=== PATIENT | female | born 1950 | race Caucasian/White ===

== ENCOUNTER → 2016-12-21 | Outpatient (CLI) | payer MEDICARE, OTHER ==
[2016-12-21 19:11] LABS: Basophils % (A) 1 %; CH 28.9; CHCM 32.3; Eosinophils # (A) 0.2 k/uL (0-0.7); Eosinophils % (A) 2 %; HCT 44.1 % (34.0-46.0); HDW 2.42; HGB 14.4 gm/dL (11.4-16.0); Luc # (Auto) 0.11; Luc % (Auto) 2; Lymphocytes # (A) 1.4 k/uL (1.0-4.8); Lymphocytes % (A) 22 %; MCH 29.4 pg (25.0-35.0); MCHC 32.8 g/dL (31.0-37.0); MCV 89.8 fL (80.0-100.0); Mean Platelet Volume 9.1; Monocytes # (A) 0.4 k/uL (0-1.0); Monocytes % (A) 6 %; Neutrophils # (A) 4.2 k/uL (1.3-7.7); Neutrophils % (A) 68 %; RBC 4.91 m/uL (3.80-5.40); RDW 12.8 % (11.5-15.5); WBC 6.2 k/uL (3.8-10.6); WBC (Perox) 6.21
[2016-12-21 19:35] LABS: ALT 39 U/L (9-52); AST 26 U/L (14-36); Alkaline Phosphatase 101 U/L (38-126); Anion Gap 9 mmol/L; Blood Urea Nitrogen 18 mg/dL (7-17); Calcium 9.7 mg/dL (8.4-10.2); Carbon Dioxide 29 mmol/L (22-30); Chloride 105 mmol/L (98-107); Cholesterol 178 mg/dL (<200); Glucose 91 mg/dL (74-99); HDL Cholesterol 72 mg/dL (40-60); Non-African American GFR(MDRD) >60 (>60 ml/min/1.73 sqM); Potassium 4.3 mmol/L (3.5-5.1); Sodium 143 mmol/L (137-145); Total Bilirubin 0.6 mg/dL (0.2-1.3); Total Protein 7.2 g/dL (6.3-8.2)
== END | disposition home or self-care (01) ==
LOC: MMGSC 11:05
PROVIDERS: ATTEND Family Medicine
DX: E78.5 Hyperlipidemia, unspecified (principal); I10 Essential (primary) hypertension; E04.1 Nontoxic single thyroid nodule; R94.6 Abnormal results of thyroid function studies
CPT/HCPCS: 36415; 80053; 80061; 84439; 84443; 84481; 85025; 90732; 99214

== ENCOUNTER → 2017-03-03 | Outpatient (CLI) | payer MEDICARE, OTHER ==
[2017-03-06 12:00] LABS: CVD Source Urogenital
== END | disposition home or self-care (01) ==
LOC: MMGSC 12:28
PROVIDERS: ATTEND Family Medicine
DX: N39.0 Urinary tract infection, site not specified (principal); R10.9 Unspecified abdominal pain; R30.0 Dysuria; N76.6 Ulceration of vulva
CPT/HCPCS: 87086; 87252; 87498; 87529; 87798

== ENCOUNTER → 2017-04-26 | Outpatient (CLI) | payer MEDICARE, OTHER | END | disposition home or self-care (01) | LOC: MMGSC 14:24 | PROVIDERS: ATTEND Family Medicine | DX: N39.0 Urinary tract infection, site not specified (principal) | CPT/HCPCS: 87086; 99213 ==

== ENCOUNTER → 2017-09-04 | Outpatient (CLI) | payer MEDICARE, OTHER ==
[2017-09-04 10:57] LABS: Basophils # (A) 0.1 k/uL (0-0.2); Basophils % (A) 1 %; Eosinophils # (A) 0.2 k/uL (0-0.7); Eosinophils % (A) 3 %; HCT 43.3 % (34.0-46.0); HGB 14.1 gm/dL (11.4-16.0); Lymphocytes # (A) 1.6 k/uL (1.0-4.8); Lymphocytes % (A) 28 %; MCH 28.6 pg (25.0-35.0); MCHC 32.5 g/dL (31.0-37.0); MCV 87.9 fL (80.0-100.0); Mean Platelet Volume 7.4; Monocytes # (A) 0.3 k/uL (0-1.0); Monocytes % (A) 6 %; Neutrophils # (A) 3.5 k/uL (1.3-7.7); Neutrophils % (A) 61 %; Platelet Count 267 k/uL (150-450); RBC 4.92 m/uL (3.80-5.40); WBC 5.7 k/uL (3.8-10.6)
[2017-09-04 12:06] LABS: Albumin 4.2 g/dL (3.5-5.0); Calcium 9.6 mg/dL (8.4-10.2); Potassium 4.3 mmol/L (3.5-5.1); Total Bilirubin 0.4 mg/dL (0.2-1.3); Total Protein 7.1 g/dL (6.3-8.2)
[2017-09-04 12:17] LABS: T4, Free (Free Thyroxine) 0.99 ng/dL (0.78-2.19)
== END ==
LOC: LABWHC1 10:35
PROVIDERS: ATTEND Family Medicine
DX: E78.5 Hyperlipidemia, unspecified (principal); E03.9 Hypothyroidism, unspecified; I10 Essential (primary) hypertension
CPT/HCPCS: 36415; 80053; 80061; 84439; 84443; 84481; 85025

== ENCOUNTER → 2020-05-05 | Outpatient (CLI) | payer MEDICARE, OTHER | END | disposition home or self-care (01) | LOC: LABWHC1 15:16 | PROVIDERS: ATTEND Family Medicine | DX: R51.9 Headache, unspecified (principal); R19.7 Diarrhea, unspecified; R50.9 Fever, unspecified; R53.83 Other fatigue | CPT/HCPCS: 87502; U0003; C9803; U0005 ==

== ENCOUNTER → 2021-12-21 | Outpatient (CLI) | payer MEDICARE, OTHER ==
--- NOTE | 2021-12-21 11:04 | FL ---
EXAMINATION TYPE: FL barium swallow DATE OF EXAM: 12/21/2021 COMPARISON: 03/17/2016 HISTORY: GERD food getting stuck TECHNIQUE: A single thin contrast sonogram study is performed. FINDINGS: Esophagus dilates to normal caliber and has normal contour to the gastroesophageal junction. Schatzki 's ring in the gastroesophageal junction is above the diaphragm. Small hiatal hernia is present. Few tertiary contractions are identified during the examination within the distal esophagus. Overhead rad iographs were obtained. Fluoroscopy time: 42 seconds. Images: 18 IMPRESSIONS: 1. There appears to be interval herniation of the stomach into the distal thorax and a small hiatal h ernia present. 2. Mild presbyesophagus.
== END | disposition home or self-care (01) ==
LOC: RADFLMAIN 09:24
PROVIDERS: ATTEND Surgery
DX: K44.9 Diaphragmatic hernia without obstruction or gangrene (principal); K22.89 Other specified disease of esophagus; K21.9 Gastro-esophageal reflux disease without esophagitis
CPT/HCPCS: 74220

== ENCOUNTER 2021-12-23 09:41 | Day surgery (SDC) | payer MEDICARE, OTHER ==
[~2021-12-23 09:41] MED LIST: LACTATED RINGERS 1,000 ML IV SCH; LIDOCAINE 1% (10MG/ML) FOR IV START INTRADERMA PRN
[2021-12-23 10:07] VITALS: TEMP 98.4
[2021-12-23] MEDS ORDERED: LIDOCAINE 2% INJ 20 MG/ML (2 ML VIAL) ONE (10:45)
[2021-12-23] MEDS ORDERED: PROPOFOL 10 MG/ML 20 ML VIAL IV ONE (10:45)
--- NOTE | 2021-12-23 10:54 | P.GSHP ---
History of Present Illness H&P Date: 12/23/21 Chief Complaint: GERD, dysphagia Is a 71-year-old female who presents today for EGD. She's had some issues with GERD and dysphagia. Her recent esophagram shows evidence of recurrent hiatal hernia. Past Medical History Past Medical History: GERD/Reflux, Hyperlipidemia, Hypertension Additional Past Medical History / Comment(s): RASH ON FOREHEAD BEING TREATED BY CERTIFIED CONTROL SYSTEMS TECHNICIAN. History of Any Multi-Drug Resistant Organisms: None Reported Past Surgical History: Cholecystectomy, Hernia Repair, Hysterectomy, Tonsillectomy Additional Past Surgical History / Comment(s): EGD hiatal hernia repair Past Anesthesia/Blood Transfusion Reactions: Motion Sickness, Postoperative Nausea & Vomiting (PONV) Smoking Status: Never smoker - Past Family History Mother Family Medical History: No Reported History Additional Family Medical History / Comment(s): leukemia at end passed at 89 Father Additional Family Medical History / Comment(s): BLOOD CLOT Medications and Allergies Home Medications Medication Instructions Recorded Confirmed Type ALPRAZolam [Xanax] 0.5 mg PO DAILY PRN 02/26/16 12/23/21 History Multivitamins, Thera [Multivitamin 1 tab PO DAILY 02/26/16 12/23/21 History (formulary)] Sertraline HCl [Zoloft] 75 mg PO DAILY 02/26/16 12/23/21 History amLODIPine BESYLATE/BENAZEPRIL 1 tab PO QAM 02/26/16 12/23/21 History [Lotrel 5-10 MG] Rosuvastatin Calcium [Crestor] 1 tab PO DIRECTED 12/22/21 12/23/21 History Allergies Allergy/AdvReac Type Severity Reaction Status Date / Time codeine Allergy Mild Nausea & Verified 12/23/21 09:59 Vomiting Surgical - Exam Vital Signs Temp Pulse Resp BP Pulse Ox 98.4 F 78 16 147/78 98 12/23/21 09:59 12/23/21 09:59 12/23/21 09:59 12/23/21 09:59 12/23/21 09:59 - General well developed, well nourished, no distress - Eyes PERRL - ENT normal pinna - Neck no masses - Respiratory normal expansion - Cardiovascular Rhythm: regular - Abdomen Abdomen: soft, non tender Assessment and Plan Assessment: GERD, dysphagia. We'll perform EGD.
--- NOTE | 2021-12-23 10:55 | P.OP ---
Date of Procedure: 12/23/21 Preoperative Diagnosis: GERD, dysphagia Postoperative Diagnosis: Recurrent hiatal hernia Esophagitis Procedure(s) Performed: EGD Anesthesia: MAC Surgeon: Chip Correia Pathology: other (Antrum, esophagus) Condition: stable Disposition: PACU Description of Procedure: Patient's placed on the endoscopy table in the lateral position. She received IV sedation. The gastro-/oropharynx passed in the esophagus into the stomach. Scope was then placed through the pylorus. First and second portion of the d uodenum appeared normal. Scope was then brought back the antrum this. Mildly inflamed. A biopsies performed. The scope was unretroflexed and remainder the stomach appeared normal. The patient had a small recurrent hiatal hernia. The GE junction was at 38 cm. The distal esophagus appeared inflamed. There is evidence of a Schatzki ring. A biopsies performed. The proximal esophagus appeared normal. Scope withdrawn for patient.
[2021-12-23 11:14] VITALS: BP 145/81; PULSE 70; RESP 16
== END 2021-12-23 11:27 | disposition home or self-care (01) ==
LOC: ORWHC2ENDO 09:41
PROVIDERS: ATTEND Surgery
DX: K21.00 Gastro-esophageal reflux disease with esophagitis, without bleeding (principal); K44.9 Diaphragmatic hernia without obstruction or gangrene; K22.2 Esophageal obstruction; I10 Essential (primary) hypertension; E78.5 Hyperlipidemia, unspecified; F41.9 Anxiety disorder, unspecified; F32.A Depression, unspecified; Z88.5 Allergy status to narcotic agent; Z79.899 Other long term (current) drug therapy; Z90.49 Acquired absence of other specified parts of digestive tract; Z90.710 Acquired absence of both cervix and uterus; Z80.6 Family history of leukemia; Z82.49 Family history of ischemic heart disease and other diseases of the circulatory system
CPT/HCPCS: 88305; 43239; J2704; J2001

== ENCOUNTER → 2022-01-03 | Outpatient (CLI) | payer MEDICARE, OTHER ==
[2022-01-03 14:27] LABS: Basophils # (A) 0.07 X 10*3/uL (0.00-0.10); Eosinophils # (A) 0.16 X 10*3/uL (0.04-0.35); Eosinophils % (A) 2.3 %; HCT 43.1 % (37.2-46.3); HGB 14.1 g/dL (12.0-15.0); Immature Grans, Automated 0.3 %; Lymphocytes # (A) 1.69 X 10*3/uL (0.90-5.00); Lymphocytes % (A) 24.7 %; MCH 30.2 pg (27.0-32.0); MCHC 32.7 g/dL (32.0-37.0); MCV 92.3 fL (80.0-97.0); Mean Platelet Volume 11.3 fL (9.5-12.2); Monocytes # (A) 0.54 X 10*3/uL (0.20-1.00); Monocytes % (A) 7.9 %; NRBC Per 100 WBC 0 /100 WBCS (0.0-0.0); Neutrophils # (A) 4.36 X 10*3/uL (1.80-7.70); Neutrophils % (A) 63.8 %; Platelet Count 344 X 10*3/uL (140-440); RBC 4.67 X 10*6/uL (4.10-5.20); RDW 12.8 % (11.5-14.5); WBC 6.84 X 10*3/uL (4.50-10.00)
== END | disposition home or self-care (01) ==
LOC: LABPAT 09:45
PROVIDERS: ATTEND Surgery
DX: Z01.812 Encounter for preprocedural laboratory examination (principal); K21.00 Gastro-esophageal reflux disease with esophagitis, without bleeding
CPT/HCPCS: 36415; 85025; 93005

== ENCOUNTER 2022-02-02 06:48 | Day surgery (SDC) | payer MEDICARE, OTHER ==
[~2022-02-02 06:48] MED LIST changes: +ACETAMINOPHEN TAB 500 MG TAB PO PRN; +HEPARIN SODIUM,PORCINE/PF 5,000 UNIT/0.5 ML SYRINGE SQ PRN; -LACTATED RINGERS 1,000 ML IV SCH; -LIDOCAINE 1% (10MG/ML) FOR IV START INTRADERMA PRN
[2022-02-02] MEDS ORDERED: ONDANSETRON 4 MG/2 ML VIAL IVP ONE ×2 (06:59→10:02)
[2022-02-02] MEDS ORDERED: fentaNYL (PF) 50 MCG/ML 2 ML AMP IV PRN (06:59)
[2022-02-02] MEDS ORDERED: DEXAMETHASONE SOD PHOSPHATE 4 MG/ML 1 ML VIAL IV ONE (06:59)
[2022-02-02] MEDS ORDERED: LACTATED RINGERS 1,000 ML IV ONE ×4 (07:45→12:15)
[2022-02-02] MEDS ORDERED: ROCURONIUM 10 MG/ML (5 ML VIAL) IV ONE (08:20)
[2022-02-02] MEDS ORDERED: KETAMINE 10 MG/ML 20 ML VIAL ONE (08:20)
[2022-02-02] MEDS ORDERED: MIDAZOLAM 2 MG/2 ML VIAL ONE (08:20)
[2022-02-02] MEDS ORDERED: PHENYLEPHRINE-0.9% NACL SYG 1,000 MCG/10 ML SYRINGE ONE (08:20)
[2022-02-02] MEDS ORDERED: NEOSTIGMINE 1 MG/ML 10 ML VIAL ONE (08:20)
[2022-02-02] MEDS ORDERED: GLYCOPYRROLATE 0.2 MG/ML 2 ML VIAL ONE (08:20)
[2022-02-02] MEDS ORDERED: LIDOCAINE 2% INJ 20 MG/ML (2 ML VIAL) ONE (08:20)
[2022-02-02] MEDS ORDERED: SUCCINYLCHOLINE CHLORIDE 200 MG/10 ML VIAL IV ONE (08:20)
[2022-02-02] MEDS ORDERED: PROPOFOL 10 MG/ML 20 ML VIAL IV ONE (08:20)
[2022-02-02] MEDS ORDERED: KETOROLAC 30 MG/ML 1 ML VIAL ONE (08:20)
[2022-02-02] MEDS ORDERED: LIDOCAINE 4% LTA KIT (4 ML) TOPICAL ONE (08:20)
[2022-02-02] MEDS ORDERED: fentaNYL (PF) 50 MCG/ML 2 ML AMP ONE (08:20)
[2022-02-02] MEDS ORDERED: LIDOCAINE 1%-EPI 1:100,000 20 ML VIAL SQ ONE ×2 (08:32→08:54)
--- NOTE | 2022-02-02 09:49 | P.GSHP ---
History of Present Illness H&P Date: 02/02/22 Chief Complaint: GERD, dysphagia Is a 71-year-old female who's developed a recurrent hiatal hernia. Patient's echo with GERD and dysphagia. Patient presents today for laparoscopic repair of recurrent hiatal hernia Past Medical History Past Medical History: Cancer, GERD/Reflux, Hyperlipidemia, Hypertension, Osteoarthritis (OA) Additional Past Medical History / Comment(s): MIGRAINE HEADACHES, HIATAL HERNIA , SKIN CANER History of Any Multi-Drug Resistant Organisms: None Reported Past Surgical History: Cholecystectomy, Hysterectomy, Tonsillectomy Additional Past Surgical History / Comment(s): EGD, COLONOSCOPY Past Anesthesia/Blood Transfusion Reactions: Previous Problems w/ Anesthesia, Motion Sickness, Postoperative Nausea & Vomiting (PONV) Smoking Status: Never smoker - Past Family History Mother Family Medical History: Cancer Additional Family Medical History / Comment(s): leukemia at end passed at 89 Father Additional Family Medical History / Comment(s): BLOOD CLOT Brother(s) Family Medical History: Cancer Medications and Allergies Home Medications Medication Instructions Recorded Confirmed Type ALPRAZolam [Xanax] 0.5 mg PO DAILY PRN 02/26/16 01/27/22 History Multivitamins, Thera [Multivitamin 1 tab PO DAILY 02/26/16 01/27/22 History (formulary)] Sertraline HCl [Zoloft] 75 mg PO DAILY 02/26/16 01/27/22 History amLODIPine BESYLATE/BENAZEPRIL 1 tab PO QAM 02/26/16 01/27/22 History [Lotrel 5-10 MG] Rosuvastatin Calcium [Crestor] 1 tab PO MOWEFR 12/22/21 01/27/22 History Allergies Allergy/AdvReac Type Severity Reaction Status Date / Time codeine Allergy Mild Nausea & Verified 01/27/22 10:39 Vomiting Surgical - Exam Vital Signs Temp Pulse Resp BP Pulse Ox 98.7 F 85 18 127/74 100 02/02/22 07:36 02/02/22 07:36 02/02/22 07:36 02/02/22 07:36 02/02/22 07:36 - General well developed, well nourished, no distress - Eyes PERRL - ENT normal pinna - Neck no masses - Respiratory normal expansion - Cardiovascular Rhythm: regular - Abdomen Abdomen: soft, non tender Assessment and Plan Assessment: GERD, dysphagia. Recurrent hiatal hernia. We'll perform laparoscopic repair of hiatal hernia.
[2022-02-02 09:50] VITALS: RESP 16
[2022-02-02] MEDS ORDERED: HYDROmorphone 1 MG/ML 1 ML SYRINGE IVP PRN (09:52)
--- NOTE | 2022-02-02 09:52 | P.OP ---
Date of Procedure: 02/02/22 Preoperative Diagnosis: GERD, dysphagia Postoperative Diagnosis: Recurrent hiatal hernia GERD Dysphagia Procedure(s) Performed: Laparoscopic repair of paraesophageal hiatal hernia with mesh Anesthesia: CHARLENE Surgeon: Chip Correia Estimated Blood Loss (ml): 10 Pathology: none sent Condition: stable Disposition: PACU Description of Procedure: The patient was placed on the operating table in the supine position. The patient received general anesthesia. And was placed in dorsal lithotomy position. The patient was prepped and draped in the usual sterile fashion. The skin incision sites were anesthetized with 1% local Xylocaine. The skin was incised in the left periumbilical area and then using a blade less 5 mm trocar under direct visualization panel cavity was entered. After adequate insufflation the laparoscope was then placed into the peritoneal cavity. Next a 5 mm trochars placed in the right epigastric position. Another 5 millimeter trocar the right lateral position. Another 5 millimeter trocar in the left lateral position a 5 mm trocar is placed in the left epigastric position. And then the initial 5 mm trocar was exchanged for a 10 mm trocar. The left lateral lobe liver was retracted. The hernia was seen. The patient had a central herni a with a portion of the stomach within the chest. The crural defect was then dissected using the Harmonic scissors device. A 360 crural dissection was performed the esophagus stomach was reduced back into the peritoneal Cavity. The crural defect was then closed using 2-0 Ethibond suture. Care was taken to ensure the crural repair was not too tight. After the crura was repaired. A piece of [place] [employer] a mesh was placed over top the repair and secured with the sole right running device. A good portion of the esophagus and stomach were completely within the perineal cavity. There is no bleeding seen. The trochars withdrawn. The skin was closed interrupted 3-0 Monocryl suture. Dermabond dressing was applied. Patient top she will sent to recovery room in stable condition.
[2022-02-02] MEDS ORDERED: diphenhydrAMINE 50 MG/ML 1 ML VIAL IVP ONE (10:23)
[2022-02-02] MEDS: LACTATED RINGERS 1,000 ML IV SCH (13:41)
[2022-02-02] MEDS: D5-0.45% NACL WITH KCL 20MEQ/L 1,000 ML IV SCH (16:07)
--- NOTE | 2022-02-02 17:05 | P.CONS ---
History of Present Illness - Reason for Consult Consult date: 02/02/22 Medical Management Requesting physician: Chip Correia - History of Present Illness History of Presenting Illness: Patient is a Very pleasant 71-year-old female with a past medical history of hypertension, hyperlipidemia, GERD, and hiatal hernia. Patient is currently admitted under general surgery team status post laparoscopic repair of paraesophageal hiatal hernia. Surgical procedure was completed by Dr. Correia on 02/02/22. We have been consulted for medical management throughout patient's hospitalization. patient was seen and fully evaluated at bedside. Patient cu rrently doing well denies having any postoperative nausea or vomiting she is tolerating clear liquid diet and denies having any difficulty swallowing. Laparoscopic postoperative incisions well approximated and intact with no signs of drainage or surrounding erythema. patient denies having any dizziness, lightheadedness, chest pain, palpitations, shortness of breath, cough or congestion, nausea, vomiting, or any other complaints at this time. Review of systems: Pertinent positives and negatives as discussed in HPI, a complete review of systems was performed and all other systems are negative. Physical exam: Vital signs reviewed and stable. General: Nontoxic, no distress and appears stated age. Derm: Skin warm and dry, normal coloration for ethnicity. Head: Atraumatic, normocephalic and symmetric. Eyes: EOMs intact, no lid lag, and anicteric sclera Mouth: no lip lesions, mucus membranes moist Cardiovascular: regular rate and rhythm with normal S1S2, no murmur, positive posterior tibial pulses bilaterally, and cap refill < 2 seconds. Lungs: Respirations even, regular, and unlabored on room air. Lungs CTA bilaterally, no rhonchi, no rales, no wheezing, and no accessory muscle usage. Abdominal: soft, nontender to palpation, no guarding, no appreciable organomegaly Ext: ROM intact. No gross muscle atrophy, no edema, no contractures Neuro: Speech clear, face symmetrical and CN II-XII grossly intact with no noted focal neuro deficits Psych: Alert and oriented to person, place, time, and situation. Appropriate and pleasant affect. Assessment and Plan of Care: Status post laparoscopic repair of paraesophageal hiatal hernia. -Surgical procedure was completed by Dr. Correia on 02/02/22 -Management per primary admitting general surgery team including DVT prophylax is, pain management, wound care, and advancement of diet. -Currently DVT prophylaxis with Lovenox. Hypertension -Monitor vital signs and continue daily medication regimen with amlodipine and lisinopril. Hyperlipidemia -Continue daily medication regimen with atorvastatin. Depression and anxiety -Continue daily medication regimen with Zoloft. Thank you for allowing us to participate in the care of this pleasant patient. Do not hesitate to contact us with questions. Someone can be reached from the [facility] hospitalist group all hours of the day at [phone] or via [facility]. Past Medical History Past Medical History: Cancer, GERD/Reflux, Hyperlipidemia, Hypertension, Osteoarthritis (OA) Additional Past Medical History / Comment(s): MIGRAINE HEADACHES, HIATAL HERNIA , SKIN CANER History of Any Multi-Drug Resistant Organisms: None Reported Past Surgical History: Cholecystectomy, Hysterectomy, Tonsillectomy Additional Past Surgical History / Comment(s): EGD, COLONOSCOPY Past Anesthesia/Blood Transfusion Reactions: Previous Problems w/ Anesthesia, Motion Sickness, Postoperative Nausea & Vomiting (PONV) Smoking Status: Never smoker - Past Family History Mother Family Medical History: Cancer Additional Family Medical History / Comment(s): leukemia at end passed at 89 Father Additional Family Medical History / Comment(s): BLOOD CLOT Brother(s) Family Medical History: Cancer Medications and Allergies Home Medications Medication Instructions Recorded Confirmed Type ALPRAZolam [Xanax] 0.5 mg PO DAILY PRN 02/26/16 01/27/22 History Multivitamins, Thera [Multivitamin 1 tab PO DAILY 02/26/16 01/27/22 History (formulary)] Sertraline HCl [Zoloft] 75 mg PO DAILY 02/26/16 01/27/22 History amLODIPine BESYLATE/BENAZEPRIL 1 tab PO QAM 02/26/16 01/27/22 History [Lotrel 5-10 MG] Rosuvastatin Calcium [Crestor] 1 tab PO MOWEFR 12/22/21 01/27/22 History Allergies Allergy/AdvReac Type Severity Reaction Status Date / Time codeine Allergy Mild Nausea & Verified 01/27/22 10:39 Vomiting Physical Exam Vitals: Vital Signs Temp Pulse Pulse Resp BP BP Pulse Ox 02/02/22 12:59 98.5 F 77 16 158/88 94 L 02/02/22 12:15 90 16 135/68 97 02/02/22 11:45 70 16 132/65 96 02/02/22 11:30 71 16 129/63 96 02/02/22 11:15 70 16 131/64 95 02/02/22 10:56 72 16 172/79 95 02/02/22 10:41 77 16 153/78 94 L 02/02/22 10:26 68 16 153/71 94 L 02/02/22 10:11 81 16 166/75 93 L 02/02/22 09:56 75 16 163/79 94 L 02/02/22 09:41 97.4 F L 94 16 175/88 100 02/02/22 07:36 98.7 F 85 18 127/74 100 Intake and Output 02/01/22 02/02/22 02/02/22 22:59 06:59 14:59 Intake Total 2150 Output Total 705 Balance 1445 Intake: IV 2150 Output: Urine 700 Estimated Blood Loss 5 Other: Weight 73.4 kg
[2022-02-02] MEDS ORDERED: ATORVASTATIN 10 MG TAB PO SCH (21:00)
[2022-02-02] MEDS ORDERED: ACETAMINOPHEN TAB 325 MG TAB PO PRN (23:25)
[2022-02-03] MEDS: D5-0.45% NACL WITH KCL 20MEQ/L 1,000 ML IV SCH ×2 (08:06→11:08)
[2022-02-03] MEDS ORDERED: SERTRALINE 25 MG TAB PO SCH (09:00)
[2022-02-03] MEDS ORDERED: amLODIPine 5 MG TAB PO SCH (09:00)
[2022-02-03] MEDS ORDERED: ENOXAPARIN 40 MG/0.4 ML SYRINGE SQ SCH (09:00)
[2022-02-03] MEDS ORDERED: lisinopriL 10 MG TAB PO SCH (09:00)
[2022-02-03 09:08] LABS: HCT 38.7 % (37.2-46.3); HGB 12.7 g/dL (12.0-15.0); MCH 29.1 pg (27.0-32.0); MCHC 32.8 g/dL (32.0-37.0); MCV 88.6 fL (80.0-97.0); Mean Platelet Volume 11.4 fL (9.5-12.2); NRBC Per 100 WBC 0 /100 WBCS (0.0-0.0); Platelet Count 286 X 10*3/uL (140-440); RBC 4.37 X 10*6/uL (4.10-5.20); RDW 12.8 % (11.5-14.5); WBC 9.27 X 10*3/uL (4.50-10.00)
[2022-02-03 09:19] LABS: Albumin 3.9 g/dL (3.8-4.9); Albumin/Globulin Ratio 1.7 (1.60-3.17); Anion Gap 10.8 mmol/L (10.00-18.00); BUN/Creat Ratio 8.75 Ratio (12.00-20.00); Carbon Dioxide 25.2 mmol/L (20.0-27.5); Globulin 2.3 g/dL (1.6-3.3); Non-African American GFR(CKD) 74.2 (60.0-200.0); Potassium 4.1 mmol/L (3.5-5.5); Total Bilirubin 0.4 mg/dL (0.30-1.20); Total Protein 6.2 g/dL (6.2-8.2)
[2022-02-03] MEDS: LACTATED RINGERS 1,000 ML IV SCH (10:20)
--- NOTE | 2022-02-03 12:46 | P.DS ---
Providers Expected date of discharge: 02/03/22 Attending physician: Chip Correia Consults: 02/02/22 09:52 Consult Physician Routine Consulting Provider: Torie Bermudez Consult Reason/Comments: Medical management Do you want consulting provider notified?: Yes [facility]: Discharge diagnosis 1. Recurrent hiatal hernia, GERD, dysphagia status post laparoscopic repair of paraesophageal hiatal hernia with mesh Hospital course This is a 71-year-old female with a known history of recurrent hiatal hernia she is status post laparoscopic repair of paraesophageal hiatal hernia with mesh. Patient reports her pain is controlled. She is tolerating diet. She is afebrile. She is up and ambulating. She is stable for discharge. Please refer to chart for any further details. Physician [employer] note has been reviewed by physician. Signing provider agrees with the documented findings, assessment, and plan of care. Patient Condition at Discharge: Stable Plan - Discharge Summary Discharge Rx Participant: No New Discharge Prescriptions: New Acetaminophen Tab [Tylenol] 1,000 mg PO Q6HR PRN #30 tablet PRN Reason: Pain Continue amLODIPine BESYLATE/BENAZEPRIL [Lotrel 5-10 MG] 1 tab PO QAM Sertraline HCl [Zoloft] 75 mg PO DAILY Multivitamins, Thera [Multivitamin (formulary)] 1 tab PO DAILY ALPRAZolam [Xanax] 0.5 mg PO DAILY PRN PRN Reason: Anxiety Rosuvastatin Calcium [Crestor] 1 tab PO MOWEFR Discharge Medication List ALPRAZolam [Xanax] 0.5 mg PO DAILY PRN 02/26/16 [History] Multivitamins, Thera [Multivitamin (formulary)] 1 tab PO DAILY 02/26/16 [History] Sertraline HCl [Zoloft] 75 mg PO DAILY 02/26/16 [History] amLODIPine BESYLATE/BENAZEPRIL [Lotrel 5-10 MG] 1 tab PO QAM 02/26/16 [History] Rosuvastatin Calcium [Crestor] 1 tab PO MOWEFR 12/22/21 [History] Acetaminophen Tab [Tylenol] 1,000 mg PO Q6HR PRN #30 tablet 02/03/22 [Rx]
--- NOTE | 2022-02-03 13:22 | P.PN ---
Subjective Progress Note Date: 02/03/22 Hospital course Patient is a very pleasant 71-year-old female with a past medical history of hypertension, hyperlipidemia, GERD, and hiatal hernia. Patient is currently admitted under general surgery team status post laparoscopic repair of paraesophageal hiatal hernia. Surgical procedure was completed by Dr. Correia on 02/02/22. We have been consulted for medical management throughout patient's hospitalization. Physical exam: Patient seen and fully evaluated at bedside this morning. She was ambulating in room and denied having any complaints or concerns. Patient reports po stoperative pain is controlled and is tolerating clear liquid diet. Morning labs reviewed and unremarkable. Patient continues to deny having any headache, lightheadedness, dizziness, chest pain, palpitations, shortness of breath, nausea, vomiting, or any other complaints. Patient denies passing flatus or having a bowel movement since hospitalization. Vital signs reviewed and stable. General: Nontoxic, no distress and appears stated age. Derm: Skin warm and dry, normal coloration for ethnicity. Head: Atraumatic, normocephalic and symmetric. Eyes: EOMs intact, no lid lag, and anicteric sclera Mouth: no lip lesions, mucus membranes moist Cardiovascular: regular rate and rhythm with normal S1S2, no murmur, positive posterior tibial pulses bilaterally, and cap refill < 2 seconds. Lungs: Respirations even, regular, and unlabored on room air. Lungs CTA bilaterally, no rhonchi, no rales, no wheezing, and no accessory muscle usage. Abdominal: soft, nontender to palpation, no guarding, no appreciable organomegaly Ext: ROM intact. No gross muscle atrophy, no edema, no contractures Neuro: Speech clear, face symmetrical and CN II-XII grossly intact with no noted focal neuro deficits Psych: Alert and oriented to person, place, time, and situation. Appropriate and pleasant affect. Assessment and Plan of Care: Status post laparoscopic repair of paraesophageal hiatal hernia. -Surgical procedure was completed by Dr. Correia on 02/02/22 -Management per primary admitting general surgery team including DVT prophylaxis, pain management, wound care, and advancement of diet. -Currently DVT prophylaxis with Lovenox. Hypertension -Monitor vital signs and continue daily medication regimen with amlodipine and lisinopril. Hyperlipidemia -Continue daily medication regimen with atorvastatin. Depression and anxiety -Continue daily medication regimen with Zoloft. Thank you for allowing us to participate in the care of this pleasant patient. Do not hesitate to contact us with questions. Someone can be reached from the [facility] hospitalist group all hours of the day at [phone] or via [employer]. Objective - Vital Signs Vital signs: Vital Signs Temp 99.2 F 02/03/22 02:00 Pulse 79 02/03/22 02:00 Resp 16 02/03/22 02:00 BP 163/88 02/03/22 02:00 Pulse Ox 92 L 02/03/22 02:00 FiO2 Intake & Output 02/02/22 02/03/22 02/03/22 18:59 06:59 18:59 Intake Total 2900 590 Output Total 705 Balance 2195 590 Weight 73.4 kg Intake: IV 2150 Intake, IV Titration 750 Amount D5-0.45% NaCl with KCl 750 20Meq/l 1,000 ml @ 125 mls/hr IV .Q8H JUANCARLOS Rx#: [id number] Oral 590 Output: Urine 700 Estimated Blood Loss 5 Other: # Voids 2 - Labs CBC & Chem 7: 02/03/22 04:50 02/03/22 04:50
[2022-02-03 13:29] VITALS: BP 139/86; PULSE 82; TEMP 98.5
[2022-02-03 14:33] VITALS: BMI 28.6
== END 2022-02-03 14:07 | disposition home or self-care (01) ==
LOC: OR 06:48 → 5NMEDONC 12:36 → OR 02-03 14:07
PROVIDERS: ATTEND Surgery
DX: K44.9 Diaphragmatic hernia without obstruction or gangrene (principal); K21.9 Gastro-esophageal reflux disease without esophagitis; R13.10 Dysphagia, unspecified; K91.0 Vomiting following gastrointestinal surgery; E78.5 Hyperlipidemia, unspecified; I10 Essential (primary) hypertension; M19.90 Unspecified osteoarthritis, unspecified site; G43.909 Migraine, unspecified, not intractable, without status migrainosus; Z90.710 Acquired absence of both cervix and uterus; Z90.49 Acquired absence of other specified parts of digestive tract; Z90.89 Acquired absence of other organs; Z85.828 Personal history of other malignant neoplasm of skin; T75.3XXD Motion sickness, subsequent encounter; Z80.6 Family history of leukemia; Z79.899 Other long term (current) drug therapy; Z88.5 Allergy status to narcotic agent
CPT/HCPCS: 43282; 80053; 83735; 85027; C1781; J2250; J0330; J1200; J1100; J2710; J0690; J2405; J3010; J1885; J2370; J2704; J1790; J1644; J2001

== ENCOUNTER → 2023-10-12 | Outpatient (CLI) | payer MEDICARE, OTHER ==
[2023-10-12 22:54] LABS: C Reactive Protein <0.30 mg/dL (0.00-0.80); Creatine Kinase 84 U/L (26-186); T4, Free (Free Thyroxine) 1.09 ng/dL (0.80-1.80)
[2023-10-12 23:35] LABS: Protein, Total 6.4 g/dL (6.2-8.2)
[2023-10-13 21:34] LABS: Gamma Globulin 0.78 g/dL (0.70-1.50)
== END | disposition home or self-care (01) ==
LOC: LABWHC1 12:37
PROVIDERS: ATTEND Psychiatry & Neurology Neurology
DX: G62.9 Polyneuropathy, unspecified (principal); R53.1 Weakness
CPT/HCPCS: 36415; 82550; 82607; 82747; 83036; 84165; 84207; 84439; 84443; 85652; 86038; 86140; 86334; 86618